=== PATIENT | male | born 1960 | race Native Hawaiian/Other Pacific Islander ===

== ENCOUNTER 2016-07-06 09:10 | Outpatient (CLI) | payer BC ==
[~2016-07-06 09:10] MED LIST: CETI10TA PO; LISINOP/HCTZ1 TA2 PO; METFORMIN ER1000 MG PO; ROSU10TA PO; VICTOZA18 MG/3 ML SC; ZANTAC 75 PO
== END 2016-07-06 20:01 | disposition home or self-care (01) ==
LOC: LAB 09:10
DX: R30.0 Dysuria (principal)
CPT/HCPCS: 81000; 87077; 87086; 87088; 87186

== ENCOUNTER 2022-02-23 15:11 | Outpatient (CLI) | payer BC ==
[2022-02-23 17:05] LABS: PLATELET COUNT 139 K/uL (142-355)
[2022-02-23 17:17] LABS: POTASSIUM 4.8 mmol/L (3.6-5.2)
== END 2022-02-23 18:52 | disposition home or self-care (01) ==
LOC: LABW 15:11
PROVIDERS: ATTEND Internal Medicine
DX: N18.31 Chronic kidney disease, stage 3a (principal)
CPT/HCPCS: 36415; 80053; 82330; 83735; 83970; 84100; 85027

== ENCOUNTER 2022-03-29 13:28 | Outpatient (CLI) | payer BC ==
[2022-03-29 13:52] LABS: PLATELET COUNT 320 K/uL (142-355)
[2022-03-29 14:53] LABS: POTASSIUM 6.6 mmol/L (3.6-5.2)
== END 2022-03-29 22:00 | disposition home or self-care (01) ==
LOC: LAB 13:28
PROVIDERS: ATTEND Internal Medicine
DX: R04.0 Epistaxis (principal); E87.1 Hypo-osmolality and hyponatremia
CPT/HCPCS: 80053; 85027; 85610

== ENCOUNTER 2022-04-25 13:14 | Outpatient (CLI) | payer BC ==
[2022-04-25 13:27] LABS: PLATELET COUNT 117 K/uL (142-355)
[2022-04-25 13:28] LABS: POTASSIUM 3.8 mmol/L (3.6-5.2)
== END 2022-04-25 19:40 | disposition home or self-care (01) ==
LOC: LAB 13:14
PROVIDERS: ATTEND Internal Medicine
DX: E87.1 Hypo-osmolality and hyponatremia (principal); R41.82 Altered mental status, unspecified
CPT/HCPCS: 80053; 81000; 85027; 87077; 87086; 87088; 87186

== ENCOUNTER 2022-06-02 16:54 | Outpatient (CLI) | payer BC ==
[2022-06-02 17:30] LABS: POTASSIUM 3.8 mmol/L (3.6-5.2)
== END 2022-06-02 19:05 | disposition home or self-care (01) ==
LOC: LABW 16:54
PROVIDERS: ATTEND Internal Medicine
DX: E11.22 Type 2 diabetes mellitus with diabetic chronic kidney disease (principal); N18.31 Chronic kidney disease, stage 3a
CPT/HCPCS: 36415; 80053

== ENCOUNTER 2023-03-11 10:31 | Outpatient (CLI) | payer BC ==
[2023-03-11 11:30] LABS: PLATELET COUNT 186 K/uL (142-355)
== END 2023-03-11 19:15 | disposition home or self-care (01) ==
LOC: LAB 10:31
PROVIDERS: ATTEND Nurse Practitioner
DX: D50.8 Other iron deficiency anemias (principal)
CPT/HCPCS: 85027